=== PATIENT | female | born 1975 | race Caucasian/White ===

== ENCOUNTER 2016-07-03 11:03 | Emergency (ER) | payer OTHER ==
[~2016-07-03] VITALS: Ht 160 cm; Wt 62.0 kg
[2016-07-03 11:16] VITALS: Ht 160 cm; Wt 62.0 kg
[2016-07-03] MEDS ORDERED: CEPHALEXIN 500 MG CAP PO ONE (11:30)
[2016-07-03] MEDS ORDERED: IBUPROFEN 600 MG TAB PO ONE (11:30)
[2016-07-03] MEDS ORDERED: IBUP-1542 PO (11:40)
[2016-07-03] MEDS ORDERED: CEPH-443 PO (11:40)
[2016-07-03 12:49] LABS: ADD UMIC YES; URINE BILIRUBIN (Dip) NEGATIVE (NEGATIVE); URINE BLOOD (Dip) TRACE (NEGATIVE); URINE COLOR LT. YELLOW (YELLOW); URINE GLUCOSE (Dip) NEGATIVE (NEGATIVE); URINE KETONES (Dip) NEGATIVE (NEGATIVE); URINE LEUKOCYTE ESTERASE (Dip) 1+ (NEGATIVE); URINE NITRITE (Dip) NEGATIVE (NEGATIVE); URINE TOTAL PROTEIN (Dip) NEGATIVE (NEGATIVE); URINE UROBILINOGEN (Dip) 0.2 E.U./dL (0.1-1.0)
[2016-07-03 13:08] LABS: BACTERIA,URINE FEW; URINE RBCS 0-2 /HPF (0)
--- NOTE | 2016-07-03 13:44 | ERD ---
ER Documentation Chief Complaint Date/Time DATE: 07/03/16 TIME: 13:40 Chief Complaint painful urination x 5 days HPI 41-year-old woman complains of suprapubic discomfort and dysuria with increased urinary frequency 4-5 days. She denies fevers or chills, no weight loss, no back pain, no headache or blurry vision, no URI symptoms, no chest pain or shortness of breath. ROS All systems reviewed and are negative except as per history of present illness. Medications Home Meds Active Scripts Cephalexin* (Keflex*) 500 Mg Capsule, 500 MG PO QID for 7 Days, CAP Prov:STEVIE LEBRON MD 07/03/16 Ibuprofen* (Ibuprofen*) 600 Mg Tablet, 600 MG PO Q8 for PAIN AND/OR INFLAMMATION , #30 TAB Prov:STEVIE LEBRON MD 07/03/16 Reported Medications [None] No Conflict Check 10/15/12 Allergies Allergies: Coded Allergies: No Known Allergies (Verified Allergy, 10/15/12) PMhx/Soc None Medical and Surgical Hx: pt denies Medical Hx, pt denies Surgical Hx Hx Alcohol Use: No Hx Substance Use: No Hx Tobacco Use: No FmHx Family History: No diabetes Physical Exam Vitals Vital Signs Date Time Temp Pulse Resp B/P Pulse Ox O2 Delivery O2 Flow Rate FiO2 07/03/16 11:16 98.4 70 18 128/78 99 Physical Exam GENERAL: Well-developed, well-nourished, well-hydrated, in no apparent distress , looks nontoxic in appearance HEENT: Moist mucous membranes, pink conjunctiva, no cervical spine tenderness or step-off deformities, no goiter, no jaundice or icterus, extraocular movements intact without pain. No submandibular induration, and no pharyngeal erythema NEURO: Alert and oriented 3, cranial nerves II through XII intact bilaterally, pupils equal round reactive to light, no focal deficits or facial asymmetry, sensation intact distally Strength 5/5 in upper and lower extremities bilaterally CARDIAC: Regular rate and rhythm, no murmurs rubs or gallops LUNGS: Clear bilaterally no wheezing crackles or stridor ABDOMEN: Soft nontender, no guarding, no rigidity, no rebound, no psoas sign no obturator sign. Normoactive bowel sounds SKIN: Warm and dry to touch, no abrasions, contusions, or hematomas, no lacerations, no ecchymosis, no target lesions, and without ulcers EXTREMITIES: No clubbing cyanosis or edema, calves are bilaterally symmetrical, no Homans sign, no popliteal cord sign. Distal pulses equal and bilateral PSYCH: Normal affect without agitation or irritability Results 24 hrs Laboratory Tests Test 07/03/16 11:50 Urine Color LT. YELLOW Urine Clarity CLEAR Urine pH 7.0 Urine Specific [place] <=1.005 Urine Ketones NEGATIVE Urine Nitrite NEGATIVE Urine Bilirubin NEGATIVE Urine Urobilinogen 0.2 E.U./dL Urine Leukocyte Esterase 1+ Urine Microscopic RBC 0-2/HPF Urine Microscopic WBC 5-10/HPF Urine Epithelial Cells FEW Urine Bacteria FEW Urine Hemoglobin TRACE Urine Glucose NEGATIVE% Urine Total Protein NEGATIVE Current Medications Medications (Trade) Dose Ordered Sig/Jim Route PRN Reason Start Time Stop Time Status Last Admin Dose Admin Ibuprofen (Motrin) 600 mg ONCE ONCE PO 07/03/16 11:30 07/03/16 11:31 DC 07/03/16 11:35 Cephalexin (Keflex) 500 mg ONCE ONCE PO 07/03/16 11:30 07/03/16 11:31 DC 07/03/16 11:35 Procedures/MDM I administered ibuprofen 600 mg p.o. cephalexin 500 mg p.o. urine analysis was concerning for acute urinary tract infection, urine cultures have also been ordered results are pending I will follow-up Differential diagnoses considered, included but not limited to acute coronary syndrome, pulmonary embolism, aortic dissection, abdominal aortic aneurysm, sepsis, stroke, meningitis, encephalitis, pneumonia, appendicitis, cholecystitis , bowel obstruction, pyelonephritis, nephrolithiasis, cystitis, as well as metabolic, hematologic, and electrolyte abnormalities. As well as abscess, cellulitis, fractures, and dislocations. Patient feels much better at this time, and vital signs are normal, symptoms have improved. I did give strict instructions to return to the ED if symptoms continue or worsen, patient will otherwise follow-up with primary care physician. Patient understood instructions and agreed to plan. Disclaimer: Inadvertent spelling or grammatical errors are likely due to EHR/ dictation software use and do not reflect on the overall quality of patient care. Departure Diagnosis: Primary Impression: UTI (urinary tract infection) Urinary tract infection type: acute cystitis Hematuria presence: without hematuria Qualified Code: N30.00 - Acute cystitis without hematuria Condition: Good Patient Instructions: Bladder Infection, Female (Adult) STEVIE LEBRON MD July 03, 2016 13:44
== END 2016-07-03 11:56 | disposition home or self-care (01) ==
LOC: FTE 11:03
DX: N30.00 Acute cystitis without hematuria (principal)
CPT/HCPCS: 81001; 81003; Z7610; 99283

== ENCOUNTER 2017-11-10 16:47 | Emergency (ER) | END 2017-11-10 19:57 | disposition home or self-care (01) ==